=== PATIENT | female | born 1960 | race Caucasian/White ===

== ENCOUNTER 2017-01-14 19:41 | Observation (INO) | payer BC, OTHER ==
[~2017-01-14] VITALS: Ht 177.8 cm; Wt 112.5 kg
[~2017-01-14 19:41] MED LIST: ADVAIR 250/501 DISK IH; AMBIEN CR12.5 MG PO; AMITRIPTYLINE H50 MG PO; AMITRIPTYLINE150 MG PO; ASPIR-LOW81 MG PO; ASPIRIN325 MG PO; Advair HFA 115/21 IH; Aspirin E.C. PO; CENTRUM SILVER1 EACH PO; CLONAZEPAM0.5 MG PO; DICLOXACILLIN500 MG PO; DuoNeb IH; ECOTRIN325 MG PO; Elavil PO; FISH OIL; FORTAMET500 M1 PO; FUROSEMIDE20 MG PO; GLIPIZIDE5 MG PO; Glucophage PO; Glucotrol PO; KLONOPIN0.5 M1 PO; KlonoPIN PO; LANTUS 10100 UNITS/ SC; LASIX20 MG PO; LYRICA300 MG PO; Levaquin PO; METFORMIN HCL500 MG PO; MORPHINE SULFA100 M2 PO; MORPHINE SULFAT30 M1 PO; MORPHINE SULFAT60 M1 PO; MORPHINE SULFAT60 MG PO; OMEGA III EPA1000 MG PO; OPANA ER30 MG PO; OPANA ER40 MG PO; OXYCODONE HCL30 MG PO; OXYCODONE15 MG PO; Opana ER PO; OxyCODONE PO; PRAVACHOL20 MG PO; PROAIR HFA8.5 GM IH; PROVENTIL,2.5 MG/3 M IH; Pravachol PO; ROXICODONE15 MG PO; SENNOSIDES8.6 MG PO; SOMA350 MG PO; SPIRIVA1 INHALATI IH; Soma; Soma PO; VICTOZA 2-0.6 MG/0.1 SC; VITAMIN C500 M5 PO; VITAMIN-E400 INTUNI PO; Victoza SC; ZOLPIDEM; predniSONE PO
[2017-01-14 21:38] LABS: EOSINOPHIL (%) 0.5 % (0-5); EOSINOPHIL COUNT 0.1 K/uL (0-0.3); HEMATOCRIT 37.8 % (36.0-46.0); IMMATURE GRANULOCYTE (%) 0.4 % (0.0-0.7); INSTRUMENT ABS NEUTROPHIL CT 7.3 K/uL; LYMPHOCYTE COUNT 2.6 K/uL (1.0-2.8); MCH 30.2 PG (29.0-34.0); MCHC 34.4 G/DL (30.0-36.0); MCV 87.9 FL (83-99); MEAN PLAT.VOLUME 10.5 uM^3 (9.5-12.4); MONOCYTE (%) 4.5 % (3-12); MONOCYTE COUNT 0.5 K/uL (0-0.8); NEUTROPHIL (%) 69.7 % (45-76); NEUTROPHIL COUNT 7.3 K/uL (1.8-6.4); PLATELET COUNT 196 K/uL (156-360); RBC DIS.WIDTH-CV 11.8 % (11.8-14.6); RBC DIS.WIDTH-SD 37.8 % (39-53); WHITE BLOOD COUNT 10.4 K/uL (4.1-10.2)
[2017-01-14 21:43] LABS: INTER. NORMALIZED RATIO 1.1; PROTHROMBIN TIME 12.3 SEC (10.2-12.9)
[2017-01-14 21:45] LABS: PTT 32.1 SEC (25-37)
[2017-01-14 21:46] LABS: CHLORIDE 107 mEq/L (99-109); POTASSIUM 3.6 mEq/L (3.7-5.4); SODIUM 140 mEq/L (136-147)
[2017-01-14 21:49] LABS: GLUCOSE 138 mg/dL (70-99)
[2017-01-14 21:50] LABS: ANION GAP 11 MEQ/L (2-14)
[2017-01-14 21:51] LABS: TOTAL BILIRUBIN 1.1 mg/dL (0.0-1.0)
[2017-01-14 21:52] LABS: ALKALINE PHOSPHATASE 130 IU/L (3-129)
[2017-01-14 21:53] LABS: GFR ESTIMATE (CALCULATED) > 59 mL/min/
[2017-01-14 21:54] LABS: UREA NITROGEN (BUN) 8 mg/dL (9-23)
[2017-01-14 22:01] LABS: TROP-I INTERPRETATION NEGATIVE; TROPONIN-I < 0.01 ng/mL (0.0-0.30)
[2017-01-15] MEDS ORDERED: ANORO ELLIPTA1 EACH IH (00:19)
[2017-01-15] MEDS ORDERED: BASAGLAR K100 UNIT/1 SC (00:20)
[2017-01-15] MEDS ORDERED: CYCLOBENZAPRINE10 MG PO (00:20)
[2017-01-15] MEDS ORDERED: OMEPRAZOLE20 MG PO (00:20)
[2017-01-15] MEDS ORDERED: DULOXETINE HCL30 MG PO (00:21)
[2017-01-15] MEDS ORDERED: GABAPENTIN300 MG PO (00:22)
[2017-01-15] MEDS ORDERED: ALEVE220 MG PO (00:28)
[2017-01-15 04:13] VITALS: BP 120/58
[2017-01-15 05:54] LABS: TROP-I INTERPRETATION NEGATIVE; TROPONIN-I < 0.01 ng/mL (0.0-0.30)
[2017-01-15 06:03] LABS: HDL CHOLESTEROL 43 MG/DL (Desirable>=50); LDL CHOLESTEROL 69 mg/dL (Desirable<100); NON-HDL CHOLESTEROL 94 mg/dL (Desirable<160); TOTAL CHOLESTEROL 137 mg/dL (Desirable<200); TRIGLYCERIDES 126 MG/DL (Normal: <150)
[2017-01-15 06:40] LABS: Estimated Average Glucose 177 mg/dL (70-123); HEMOGLOBIN A1c (GLYCOHEMOGLOB) 7.8 % HGB (Below 5.7)
[2017-01-15 07:32] VITALS: BP 143/74
[2017-01-15 07:55] LABS: POINT-OF-CARE METER ID UU13113831
[2017-01-15 09:31] VITALS: BP 141/70; BP 163/98
[2017-01-15 09:32] VITALS: BP 160/92
[2017-01-15 11:39] VITALS: BP 146/83
[2017-01-15 11:41] LABS: POINT-OF-CARE METER ID UU13113831
[2017-01-15 12:19] LABS: ADD MIUA? YES; BILIRUBIN NEGATIVE; BLOOD NEGATIVE; COLOR AMBER ((YELLOW)); GLUCOSE (STRIP) NEGATIVE; KETONES NEGATIVE; LEUKOCYTES NEGATIVE; NITRITE NEGATIVE; PROTEIN (STRIP) NEGATIVE; SPECIFIC GRAVITY 1.026 (1.000-1.030)
[2017-01-15 12:29] LABS: BACTERIA NONE SEEN /HPF; EPITHELIAL CELLS RARE /HPF; MUCUS TRACE /LPF; UCUL ADDED? NO; WHITE BLOOD CELLS 0-5 /HPF (0-5)
== END 2017-01-15 15:23 | disposition home or self-care (01) ==
LOC: EME → EDBD 19:41 → EME 19:41 → EDOF 01-15 02:16 → 5WEST 01-15 02:16 → ENRESERV 01-15 02:17 → 5WEST 01-15 03:46
PROVIDERS: Emergency Medicine; Hospitalist
DX: R55 Syncope and collapse (principal); J44.9 Chronic obstructive pulmonary disease, unspecified; Z99.2 Dependence on renal dialysis; E11.9 Type 2 diabetes mellitus without complications; G89.29 Other chronic pain; M54.9 Dorsalgia, unspecified; R94.31 Abnormal electrocardiogram [ECG] [EKG]; E78.5 Hyperlipidemia, unspecified; M16.11 Unilateral primary osteoarthritis, right hip; Z82.49 Family history of ischemic heart disease and other diseases of the circulatory system; Z87.891 Personal history of nicotine dependence; Z79.82 Long term (current) use of aspirin; Z80.1 Family history of malignant neoplasm of trachea, bronchus and lung; Z91.09 Other allergy status, other than to drugs and biological substances; Z91.040 Latex allergy status; Z88.1 Allergy status to other antibiotic agents; Z88.8 Allergy status to other drugs, medicaments and biological substances
CPT/HCPCS: 70450; 72125; 73030; 73502; 80053; 80061; 81003; 82306; 82607; 82948; 83036; 83605; 83880; 84443; 84484; 85025; 85610; 85730; 93005; 93306; 94640; 94760; 94799; 99202; 99281; 99285; G0378; G8978 GP CJ; G8979 GP CI; G8987 GO CI; G8988 GO CH; J1644; J1885; J2060; J2270; J2405; J3010; J7030